=== PATIENT | female | born 1995 | race Caucasian/White ===

== ENCOUNTER 2019-03-28 19:00 | Observation (INO) ==
[2019-03-28 19:53] LABS: URINE SOURCE VOIDED
[2019-03-28 20:04] LABS: BILIRUBIN URINE NEGATIVE (NEGATIVE); BLOOD URINE TRACE (NEGATIVE); CLARITY CLEAR (CLEAR); COLOR YELLOW; GLUCOSE URINE NEGATIVE (NEGATIVE); KETONE URINE 1+(Small) mg/dL (NEGATIVE); LEUKOCYTES URINE 1+ (NEGATIVE); NITRITE URINE NEGATIVE (NEGATIVE); PROTEIN URINE 1+(30 mg/dL) mg/dL (NEGATIVE); UROBILINOGEN URINE 4 mg/dL
[2019-03-28 20:26] LABS: UR AMPHETAMINES QUAL NONE DETECTED (NONE DETECT); UR BARBITUATES QUAL NONE DETECTED (NONE DETECT); UR BENZODIAZEPIN QUAL NONE DETECTED (NONE DETECT); UR CANNABINOIDS QUAL PRESUMPTIVE POSITIVE (NONE DETECT); UR COCAINE QUAL NONE DETECTED (NONE DETECT); UR METHADONE QUAL NONE DETECTED (NONE DETECT); UR METHAMPHETAMINE QUAL NONE DETECTED (NONE DETECT); UR OPIATES QUAL NONE DETECTED (NONE DETECT); UR OXYCODONE QUAL NONE DETECTED (NONE DETECT); UR PCP QUAL NONE DETECTED (NONE DETECT); UR PROPOXYPHENE QUAL NONE DETECTED (NONE DETECT); UR TCA QUAL NONE DETECTED (NONE DETECT)
[2019-03-28 20:49] LABS: HEMATOCRIT 32.3 % (37.0-47.0); HEMOGLOBIN 10.9 g/dL (12.0-16.0); MCH 30.3 PG (27-31); MCHC 33.7 g/dL (33-37); MCV 89.7 FL (81-99); MPV 11.6 FL (7.4-10.4); PLT 247 X1000 (130-400); WBC 17.15 X1000 (4.8-10.8)
[2019-03-28 20:50] LABS: BASO# 0.02 X1000 (0.0-0.2); BASO% 0.1 % (0.0-0.8); EOS# 0.06 X1000 (0.0-0.7); EOS% 0.3 % (0.0-10.0); IMM GRAN# 0.09 X1000 (0.0-0.04); IMM GRAN% 0.5 % (0.0-0.5); LYMPH% 15.2 % (20.5-51.1); MONO# 0.93 X1000 (0.11-0.59); MONO% 5.4 % (1.7-9.3); NEUT# 13.45 X1000 (1.4-6.5); NEUT% 78.5 % (42.2-75.2)
[2019-03-28 21:29] LABS: RAPID HIV PRESUMPTIVE NEGATIVE; RPR NON-REACTIVE (NONREACTIVE)
[2019-03-28] MEDS: LR 1,000 ML IV SCH (22:30)
--- NOTE | 2019-03-28 22:32 | OB/GYN PROGRESS NOTE ---
Progress Note OB - . OB Progress Note: Laboratory Results - last 24 hr 03/28/19 03/28/19 03/28/19 19:00 19:00 19:05 WBC RBC Hgb Hct MCV MCH MCHC RDW Std Deviation Plt Count MPV Immature Gran % (Auto) Neut % (Auto) Lymph % (Auto) [place] % (Auto) Eos % (Auto) Baso % (Auto) Immature Gran # (Auto) Neut # (Auto) Lymph # (Auto) [place] # (Auto) Eos # (Auto) Baso # (Auto) Glucose Urine Source VOIDED Urine Color YELLOW Urine Clarity CLEAR Urine pH 5.0 Ur Specific [place] 1.020 Urine Protein 1+(30 mg/dL) A Urine Ketones 1+(Small) A Urine Blood TRACE Urine Nitrite NEGATIVE Urine Bilirubin NEGATIVE Urine Urobilinogen 4 Urine WBC 1+ A Urine Glucose NEGATIVE Membranes Rupture Urine Opiates Screen NONE DETECTED Ur Oxycodone Screen NONE DETECTED Urine Methadone Screen NONE DETECTED U Propoxyphene Qual NONE DETECTED Ur Barbituates Screen NONE DETECTED Ur Tricyclics Screen NONE DETECTED Ur Phencyclidine Scrn NONE DETECTED Ur Amphetamines Screen NONE DETECTED U Methamphetamines Scrn NONE DETECTED U Benzodiazepines Scrn NONE DETECTED Urine Cocaine Screen NONE DETECTED U Cannabinoids Screen PRESUMPTIVE POSITIVE A RPR HIV 1&2 Antibody Rapid Blood Type O POSITIVE Antibody Screen NEGATIVE 03/28/19 03/28/19 03/28/19 19:25 20:30 20:30 WBC RBC Hgb Hct MCV MCH MCHC RDW Std Deviation Plt Count MPV Immature Gran % (Auto) Neut % (Auto) Lymph % (Auto) [place] % (Auto) Eos % (Auto) Baso % (Auto) Immature Gran # (Auto) Neut # (Auto) Lymph # (Auto) [place] # (Auto) Eos # (Auto) Baso # (Auto) Glucose 86 Urine Source Urine Color Urine Clarity Urine pH Ur Specific [place] Urine Protein Urine Ketones Urine Blood Urine Nitrite Urine Bilirubin Urine Urobilinogen Urine WBC Urine Glucose Membranes Rupture POSITIVE Urine Opiates Screen Ur Oxycodone Screen Urine Methadone Screen U Propoxyphene Qual Ur Barbituates Screen Ur Tricyclics Screen Ur Phencyclidine Scrn Ur Amphetamines Screen U Methamphetamines Scrn U Benzodiazepines Scrn Urine Cocaine Screen U Cannabinoids Screen RPR NON-REACTIVE HIV 1&2 Antibody Rapid PRESUMPTIVE NEGATIVE Blood Type Antibody Screen 03/28/19 20:30 WBC 17.15 H RBC 3.60 L Hgb 10.9 L Hct 32.3 L MCV 89.7 MCH 30.3 MCHC 33.7 RDW Std Deviation 14.0 Plt Count 247 MPV 11.6 H Immature Gran % (Auto) 0.5 Neut % (Auto) 78.5 H Lymph % (Auto) 15.2 L [place] % (Auto) 5.4 Eos % (Auto) 0.3 Baso % (Auto) 0.1 Immature Gran # (Auto) 0.09 H Neut # (Auto) 13.45 H Lymph # (Auto) 2.60 [place] # (Auto) 0.93 H Eos # (Auto) 0.06 Baso # (Auto) 0.02 Glucose Urine Source Urine Color Urine Clarity Urine pH Ur Specific [place] Urine Protein Urine Ketones Urine Blood Urine Nitrite Urine Bilirubin Urine Urobilinogen Urine WBC Urine Glucose Membranes Rupture Urine Opiates Screen Ur Oxycodone Screen Urine Methadone Screen U Propoxyphene Qual Ur Barbituates Screen Ur Tricyclics Screen Ur Phencyclidine Scrn Ur Amphetamines Screen U Methamphetamines Scrn U Benzodiazepines Scrn Urine Cocaine Screen U Cannabinoids Screen RPR HIV 1&2 Antibody Rapid Blood Type Antibody Screen 24 yo WF G1 at 21 weeks by U/s done at [facility]. Was taking a shower today and c/o gush of fluid when she got out. Pt states she just went to the restroom before she took a shower. [place] something run down her legs when she got into the car to come to L&D. No leakage since. No vb, No cts or pelvic pain. Pos FM. PMH - None PSHx - None Pobhx - None PGYN - No STD Allergies - none Meds - none SH - pos MJ FH NC VSS AF Gen - pt in no apparent distress, A&O x 3 ABD - soft, NT, ND Extreme - no CCE FHT - pos 120 Ctx - none Cvx - vis closed SSE - no pooling, ferning, or valsalva Pos - amniosure test U/s - pending A/p - IUD at approx 21 weeks - awaiting U/s ? ROM - all test neg except - amniosure - awaiting U/s - antibiotics started, No leakage since pt has been admitted. elevated wbc - no fever. no foul d/C. If U/s WNL then will watch overnight and possibly repeat tests
[2019-03-28] MEDS: AMPICILLIN 2 GM/NS 2 GM/100 ML IVPB IV SCH (22:35)
--- NOTE | 2019-03-29 00:26 | OB/GYN PROGRESS NOTE ---
Progress Note OB - . OB Progress Note: Laboratory Results - last 24 hr 03/28/19 03/28/19 03/28/19 19:00 19:00 19:05 WBC RBC Hgb Hct MCV MCH MCHC RDW Std Deviation Plt Count MPV Immature Gran % (Auto) Neut % (Auto) Lymph % (Auto) [place] % (Auto) Eos % (Auto) Baso % (Auto) Immature Gran # (Auto) Neut # (Auto) Lymph # (Auto) [place] # (Auto) Eos # (Auto) Baso # (Auto) Glucose Urine Source VOIDED Urine Color YELLOW Urine Clarity CLEAR Urine pH 5.0 Ur Specific [place] 1.020 Urine Protein 1+(30 mg/dL) A Urine Ketones 1+(Small) A Urine Blood TRACE Urine Nitrite NEGATIVE Urine Bilirubin NEGATIVE Urine Urobilinogen 4 Urine WBC 1+ A Urine Glucose NEGATIVE Membranes Rupture Urine Opiates Screen NONE DETECTED Ur Oxycodone Screen NONE DETECTED Urine Methadone Screen NONE DETECTED U Propoxyphene Qual NONE DETECTED Ur Barbituates Screen NONE DETECTED Ur Tricyclics Screen NONE DETECTED Ur Phencyclidine Scrn NONE DETECTED Ur Amphetamines Screen NONE DETECTED U Methamphetamines Scrn NONE DETECTED U Benzodiazepines Scrn NONE DETECTED Urine Cocaine Screen NONE DETECTED U Cannabinoids Screen PRESUMPTIVE POSITIVE A RPR HIV 1&2 Antibody Rapid Blood Type O POSITIVE Antibody Screen NEGATIVE 03/28/19 03/28/19 03/28/19 19:25 20:30 20:30 WBC RBC Hgb Hct MCV MCH MCHC RDW Std Deviation Plt Count MPV Immature Gran % (Auto) Neut % (Auto) Lymph % (Auto) [place] % (Auto) Eos % (Auto) Baso % (Auto) Immature Gran # (Auto) Neut # (Auto) Lymph # (Auto) [place] # (Auto) Eos # (Auto) Baso # (Auto) Glucose 86 Urine Source Urine Color Urine Clarity Urine pH Ur Specific [place] Urine Protein Urine Ketones Urine Blood Urine Nitrite Urine Bilirubin Urine Urobilinogen Urine WBC Urine Glucose Membranes Rupture POSITIVE Urine Opiates Screen Ur Oxycodone Screen Urine Methadone Screen U Propoxyphene Qual Ur Barbituates Screen Ur Tricyclics Screen Ur Phencyclidine Scrn Ur Amphetamines Screen U Methamphetamines Scrn U Benzodiazepines Scrn Urine Cocaine Screen U Cannabinoids Screen RPR NON-REACTIVE HIV 1&2 Antibody Rapid PRESUMPTIVE NEGATIVE Blood Type Antibody Screen 03/28/19 20:30 WBC 17.15 H RBC 3.60 L Hgb 10.9 L Hct 32.3 L MCV 89.7 MCH 30.3 MCHC 33.7 RDW Std Deviation 14.0 Plt Count 247 MPV 11.6 H Immature Gran % (Auto) 0.5 Neut % (Auto) 78.5 H Lymph % (Auto) 15.2 L [place] % (Auto) 5.4 Eos % (Auto) 0.3 Baso % (Auto) 0.1 Immature Gran # (Auto) 0.09 H Neut # (Auto) 13.45 H Lymph # (Auto) 2.60 [place] # (Auto) 0.93 H Eos # (Auto) 0.06 Baso # (Auto) 0.02 Glucose Urine Source Urine Color Urine Clarity Urine pH Ur Specific [place] Urine Protein Urine Ketones Urine Blood Urine Nitrite Urine Bilirubin Urine Urobilinogen Urine WBC Urine Glucose Membranes Rupture Urine Opiates Screen Ur Oxycodone Screen Urine Methadone Screen U Propoxyphene Qual Ur Barbituates Screen Ur Tricyclics Screen Ur Phencyclidine Scrn Ur Amphetamines Screen U Methamphetamines Scrn U Benzodiazepines Scrn Urine Cocaine Screen U Cannabinoids Screen RPR HIV 1&2 Antibody Rapid Blood Type Antibody Screen ADDENDUM U/s - IGNACIO - 3.21 IUD at 20 weeks but limited scan due to body habitus and low fluid. Pt on antibiotics. D/w pt findings and possible prolonged stay in hospital until close to viable then transfer to [facility]
[2019-03-29] MEDS ORDERED: STADOL IV PRN (00:27)
[2019-03-29] MEDS ORDERED: ZOFRAN IV PRN (00:27)
[2019-03-29] MEDS: LR 1,000 ML IV SCH ×2 (02:00→10:47)
[2019-03-29] MEDS: AMPICILLIN 2 GM/NS 2 GM/100 ML IVPB IV SCH ×3 (05:09→17:48)
[2019-03-29 06:01] LABS: RUBELLA SCREEN IMMUNE (IMMUNE)
--- NOTE | 2019-03-29 08:04 | Diag Imaging Result Doc PS360 ---
EXAM: US OBS COMPLETE > 14 WKS 03/28/2019 HISTORY: PROM, no care TECHNIQUE: OB ultrasound transabdominal scan COMMENT: The study is somewhat suboptimal due to the patient's large body habitus. There is a viable fetus with a heart rate of 155 bpm and subjectively decreased amniotic fluid volume. The fetus is in breech presentation. There is very poor anatomic detail. Based on BPD and head circumference the estimated gestational age is 20 weeks +/- 10 days for an PINKY of 08/15/2019. The four-quadrant amniotic fluid index is 3.21 cm. There are no previous studies available for comparison. IMPRESSION: Suboptimal study. Viable intrauterine gestation at approximately 20 weeks, oligohydramnios. Electronically signed by Earl Quevedo 03/29/2019 8:02 AM
--- NOTE | 2019-03-29 10:27 | OB/GYN PROGRESS NOTE ---
Progress Note OB - . OB Progress Note: Vital Signs - 24 hr 03/28/19 19:35 03/28/19 23:20 03/29/19 05:10 Temperature 96.6 F L 97 F L 97.7 F Pulse Rate 89 83 87 Respiratory Rate 18 16 16 Blood Pressure 118/58 131/60 124/57 O2 Sat by Pulse Oximetry 96 95 98 03/29/19 08:00 Temperature 96.9 F L Pulse Rate 81 Respiratory Rate 16 Blood Pressure 117/58 O2 Sat by Pulse Oximetry 97 Laboratory Results - last 24 hr 03/28/19 03/28/19 03/28/19 19:00 19:00 19:05 WBC RBC Hgb Hct MCV MCH MCHC RDW Std Deviation Plt Count MPV Immature Gran % (Auto) Neut % (Auto) Lymph % (Auto) [place] % (Auto) Eos % (Auto) Baso % (Auto) Immature Gran # (Auto) Neut # (Auto) Lymph # (Auto) [place] # (Auto) Eos # (Auto) Baso # (Auto) Glucose Urine Source VOIDED Urine Color YELLOW Urine Clarity CLEAR Urine pH 5.0 Ur Specific [place] 1.020 Urine Protein 1+(30 mg/dL) A Urine Ketones 1+(Small) A Urine Blood TRACE Urine Nitrite NEGATIVE Urine Bilirubin NEGATIVE Urine Urobilinogen 4 Urine WBC 1+ A Urine Glucose NEGATIVE Membranes Rupture Urine Opiates Screen NONE DETECTED Ur Oxycodone Screen NONE DETECTED Urine Methadone Screen NONE DETECTED U Propoxyphene Qual NONE DETECTED Ur Barbituates Screen NONE DETECTED Ur Tricyclics Screen NONE DETECTED Ur Phencyclidine Scrn NONE DETECTED Ur Amphetamines Screen NONE DETECTED U Methamphetamines Scrn NONE DETECTED U Benzodiazepines Scrn NONE DETECTED Urine Cocaine Screen NONE DETECTED U Cannabinoids Screen PRESUMPTIVE POSITIVE A RPR HIV 1&2 Antibody Rapid Rub[place] Immunity Screen Blood Type O POSITIVE Antibody Screen NEGATIVE 03/28/19 03/28/19 03/28/19 19:25 20:30 20:30 WBC RBC Hgb Hct MCV MCH MCHC RDW Std Deviation Plt Count MPV Immature Gran % (Auto) Neut % (Auto) Lymph % (Auto) [place] % (Auto) Eos % (Auto) Baso % (Auto) Immature Gran # (Auto) Neut # (Auto) Lymph # (Auto) [place] # (Auto) Eos # (Auto) Baso # (Auto) Glucose 86 Urine Source Urine Color Urine Clarity Urine pH Ur Specific [place] Urine Protein Urine Ketones Urine Blood Urine Nitrite Urine Bilirubin Urine Urobilinogen Urine WBC Urine Glucose Membranes Rupture POSITIVE Urine Opiates Screen Ur Oxycodone Screen Urine Methadone Screen U Propoxyphene Qual Ur Barbituates Screen Ur Tricyclics Screen Ur Phencyclidine Scrn Ur Amphetamines Screen U Methamphetamines Scrn U Benzodiazepines Scrn Urine Cocaine Screen U Cannabinoids Screen RPR NON-REACTIVE HIV 1&2 Antibody Rapid PRESUMPTIVE NEGATIVE Rubella Immunity Screen IMMUNE Blood Type Antibody Screen 03/28/19 20:30 WBC 17.15 H RBC 3.60 L Hgb 10.9 L Hct 32.3 L MCV 89.7 MCH 30.3 MCHC 33.7 RDW Std Deviation 14.0 Plt Count 247 MPV 11.6 H Immature Gran % (Auto) 0.5 Neut % (Auto) 78.5 H Lymph % (Auto) 15.2 L [place] % (Auto) 5.4 Eos % (Auto) 0.3 Baso % (Auto) 0.1 Immature Gran # (Auto) 0.09 H Neut # (Auto) 13.45 H Lymph # (Auto) 2.60 [place] # (Auto) 0.93 H Eos # (Auto) 0.06 Baso # (Auto) 0.02 Glucose Urine Source Urine Color Urine Clarity Urine pH Ur Specific [place] Urine Protein Urine Ketones Urine Blood Urine Nitrite Urine Bilirubin Urine Urobilinogen Urine WBC Urine Glucose Membranes Rupture Urine Opiates Screen Ur Oxycodone Screen Urine Methadone Screen U Propoxyphene Qual Ur Barbituates Screen Ur Tricyclics Screen Ur Phencyclidine Scrn Ur Amphetamines Screen U Methamphetamines Scrn U Benzodiazepines Scrn Urine Cocaine Screen U Cannabinoids Screen RPR HIV 1&2 Antibody Rapid Rubella Immunity Screen Blood Type Antibody Screen S. Patient resting in bed with her boyfriend in the room. She feels fine with no complaints and no additional leaking. O. Afebrile HEENT: Normocephalic Chest: CTAB Heart: RRR Ext: No edema. A/P 24yo at 21 weeks with suspected PPROM based on ROM + and low fluid by US. Patient with no additional leaking and no signs of infection. Will allow her to ambulate to the bathroom and have a regular diet.
[2019-03-29 16:03] VITALS: BP 118/72
[2019-03-29 17:45] LABS: HIV ANTIBODY SCREEN SEE COMMENTS
--- NOTE | 2019-03-29 17:56 | Diag Imaging Result Doc PS360 ---
EXAM: US OBS COMPLETE > 14 WKS 03/29/2019 HISTORY: decreased amniotic fluid/poss rupture TECHNIQUE: OB ultrasound transabdominal scan COMMENT: There is virtually no identifiable amniotic fluid. The heart rate is 156 bpm. Compared to the previous study of 03/28/2019, there is even less amniotic fluid. IMPRESSION: Decreased amniotic fluid consistent with premature rupture of membranes. Electronically signed by Earl Quevedo 03/29/2019 5:53 PM
[2019-03-30 10:23] LABS: HEPATITIS B SURFACE ANTIGEN SEE COMMENTS
== END 2019-03-29 20:25 | disposition left against medical advice (07) ==
LOC: P.OPLD 19:00 → P.LD 19:03 → INTOOBSV 03-29 00:30 → P.LD 03-29 00:30
PROVIDERS: ADMIT Obstetrics & Gynecology; ATTEND Obstetrics & Gynecology